=== PATIENT | male | born 1975 | race Asian ===

== ENCOUNTER 2021-01-30 17:57 | Inpatient (IN) | payer MEDICAID ==
[~2021-01-30] VITALS: Ht 170.2 cm; Wt 127.0 kg
--- NOTE | 2021-01-30 18:00 | NUR ---
Dr Walsh at bedside. Pt EDUINA from home, c/o R arm twitching. Hx: HTN, DM 2, Kidney Stones. Pt on multiple medications. Finger stick BS: HI >600. AO x 4, verbally responsive. Wilson snot appear to be in acute distress. Sinus Tachycardia on media monitor.
[2021-01-30] MEDS ORDERED: IV NORMAL SALINE 1000 ML BAG IV ONE (18:30)
[2021-01-30] MEDS ORDERED: IV NS 1000 ML 1,000 ML IV ONE (18:30)
[2021-01-30 18:32] LABS: BASOPHILS % (AUTO) 0.4 % (0.0-2.0); EOSINOPHILS # (AUTO) 0.1 K/uL (0.0-0.7); HEMATOCRIT 46.6 % (36.7-47.1); HEMOGLOBIN 15.6 g/dL (12.5-16.3); LYMPHOCYTES # (AUTO) 1.6 K/uL (20.0-40.0); LYMPHOCYTES % (AUTO) 21.9 % (20.5-51.5); MEAN CORPUSCULAR HEMOGLOBIN 29.9 uug (23.8-33.4); MEAN CORPUSCULAR HGB CONC 33 g/dL (32.5-36.3); MEAN CORPUSCULAR VOLUME 89.6 fL (73.0-96.2); MONOCYTES # (AUTO) 0.4 K/uL (2.0-10.0); MONOCYTES % (AUTO) 5.9 % (0.0-11.0); NEUTROPHILS # (AUTO) 5.3 K/uL (1.8-8.9); NEUTROPHILS % (AUTO) 70.8 % (38.5-71.5); PLATELET COUNT (AUTO) 303 K/uL (152-348); WHITE BLOOD COUNT (AUTO) 7.4 K/uL (3.6-10.2)
[2021-01-30] MEDS ORDERED: ZINC100T2 PO (18:44)
[2021-01-30] MEDS ORDERED: METF-440 PO (18:44)
[2021-01-30] MEDS ORDERED: NIFE30TA91 PO (18:44)
[2021-01-30] MEDS ORDERED: NIFE-34 PO (18:44)
[2021-01-30] MEDS ORDERED: ASPI81TA31 PO (18:44)
[2021-01-30] MEDS ORDERED: DAPA5TAB PO (18:44)
[2021-01-30] MEDS ORDERED: METO-356 PO (18:44)
[2021-01-30] MEDS ORDERED: BIOT50002 SL (18:44)
[2021-01-30] MEDS ORDERED: LOSA1TAB42 PO (18:44)
[2021-01-30] MEDS ORDERED: OMEP40CA13 PO (18:44)
[2021-01-30] MEDS ORDERED: ATOR20TA PO (18:44)
[2021-01-30 18:45] LABS: ALANINE AMINOTRANSFERASE 95 U/L (16-63); ALKALINE PHOSPHATASE 217 U/L (50-136); ASPARTATE AMINOTRANSFERASE 53 U/L (15-37); BILIRUBIN,TOTAL 0.5 mg/dL (0.2-1.0); CARBON DIOXIDE 24 mmol/L (21-32); CHLORIDE 88 mmol/L (98-107); CREATININE 1.9 mg/dL (0.6-1.3); POTASSIUM 3.1 mmol/L (3.5-5.1); TOTAL PROTEIN, SERUM 8.3 g/dL (6.4-8.2); UREA NITROGEN, BLOOD 11 mg/dL (7-18)
--- NOTE | 2021-01-30 18:58 | NUR ---
Pt remains AO x 4, fluids running. No changes in LOC noted, still with twitching on R arm. No signs of stroke. NIHSS done, Zero at this time. VS stable, as recorded.
[2021-01-30 18:59] LABS: GLUCOSE 695 mg/dL (74-106)
[2021-01-30] MEDS ORDERED: SWABABLE VALVE TRANSFER SET EA MC ONE (19:09)
[2021-01-30] MEDS ORDERED: IOHEXOL 350 100 ML INFUS..BTL ONE (19:09)
[2021-01-30] MEDS ORDERED: IV NORMAL SALINE 250 ML IV ONE (19:09)
[2021-01-30 19:27] LABS: *BILIRUBIN,URIN NEGATIVE (NEGATIVE); *CLARITY,URINE CLEAR (CLEAR); *COLOR,URINE LIGHT YELLOW (YELLOW); *KETONES,URINE TRACE (NEGATIVE); *UROBILINOGEN,URINE 0.2 E.U./dl (NORMAL); LEUKOCYTE ESTERASE ,URINE NEGATIVE (NEGATIVE); NITRITE, URINE NEGATIVE (NEGATIVE); PH,URINE 6.5 (5.0-8.0); UGLUCOSE 2+ (NEGATIVE)
[2021-01-30 19:28] LABS: *BLOOD, URINE TRACE INTACT (NEGATIVE)
[2021-01-30] MEDS ORDERED: MISCELLANEOUS MED IV STA (19:28)
[2021-01-30 19:29] LABS: WBC,URINE 0-3 /HPF (0-3)
[2021-01-30] MEDS ORDERED: IV NS + KCL 40 MEQ 1000 ML BAG 1,000 ML IV PRN (19:30)
[2021-01-30] MEDS ORDERED: MISCELLANEOUS MED IV ONE (19:30)
[2021-01-30] MEDS ORDERED: INSULIN REGULAR, HUMAN 100 UNITS in IV NORMAL SALINE 100 ML IV ONE (19:45)
--- NOTE | 2021-01-30 20:05 | NUR ---
Hold insulin drip at this time per Dr. Tinajero.
--- NOTE | 2021-01-30 20:14 | NUR ---
Paged [employer] for panel call.
--- NOTE | 2021-01-30 20:20 | NUR ---
Dr Tinajero spoke with Evert Taylor NP for CCU admission.
[2021-01-30 20:37] LABS: MAGNESIUM 1.9 mg/dL (1.8-2.4); PHOSPHOROUS 3.2 mg/dL (2.5-4.9)
[2021-01-30] MEDS ORDERED: POTASSIUM CHLORIDE 20 MEQ TAB.PRT.SR ONE (20:42)
[2021-01-30] MEDS ORDERED: POTASSIUM CHLORIDE 20 MEQ TAB.PRT.SR PO ONE (20:45)
--- NOTE | 2021-01-30 20:45 | NUR ---
PATIENT REFUSES ARTERIAL BLOOD GAS. PATIENT SAYS THAT HE FEELS OKAY AND HIS SATURATION IS GOOD AND THAT HE DOES NOT WANT AN ARTERIAL BLOOD GAS TO BE DONE. SPOKE TO ER MD AND CCU NURSES (BRADLEY AND RITA). CCU RN'S SAID THEY WILL ENDORSE IT TO THE ORDERING PHYSICIAN.
--- NOTE | 2021-01-30 21:47 | NUR ---
Pt. admitted to CCU Bed 4, under care of Evert Taylor NP. Diagonsis: Hyperglycemia Belongs List completed. MRSA swab done. Received insulin drip & IV fluids from pharmacy, will send with patient upstairs to the unit. Patient's vital signs are stable.
--- NOTE | 2021-01-30 22:00 | NUR ---
RECEIVED PATIENT FROM ER PATIENT AAOX4,MAEX4 ABLE TO WALK FORM GURNEY TO BED . ADMISSION HISTORY DONE AND DATA COLLECTED FROM PATIENT .
[2021-01-30 22:23] VITALS: BP 157/107
[2021-01-30 22:29] VITALS: BP 148/101
[2021-01-30 22:30] VITALS: BP 151/98
--- NOTE | 2021-01-30 22:45 | NUR ---
given jello and sandwich to eat ,patient able to feed self independent .
[2021-01-30 22:53] LABS: CREATININE 1.3 mg/dL (0.6-1.3); POTASSIUM 3.4 mmol/L (3.5-5.1)
[2021-01-30] MEDS ORDERED: ACETAMINOPHEN 325 MG TABLET PO PRN (23:00)
[2021-01-30] MEDS ORDERED: TEMAZEPAM 15 MG CAPSULE PO PRN (23:00)
[2021-01-30] MEDS ORDERED: HYDROCODONE/APAP 5-325MG TABLET PO PRN (23:00)
[2021-01-30] MEDS ORDERED: MAGNESIUM HYDROXIDE 30 ML LIQUID UDC PO PRN (23:00)
[2021-01-30] MEDS ORDERED: ONDANSETRON 4 MG/2 ML VIAL IV PRN (23:00)
[2021-01-30] MEDS ORDERED: Z GUARD REMEDY PASTE 57 GM TUBE TOP PRN (23:00)
[2021-01-30] MEDS ORDERED: INSULIN REGULAR, HUMAN 300 UNIT/3 ML VIAL SQ ONE (23:30)
[2021-01-30] MEDS ORDERED: IV 1/2NS 1000 ML 1,000 ML IV PRN (23:30)
[2021-01-30] MEDS ORDERED: DEXTROSE 50% 50 ML DISP.SYRIN IV PRN (23:30)
--- NOTE | 2021-01-30 23:33 | NUR ---
SPOKED TO FOOD PRESERVATION SCIENTIST AUGUSTINE GUERRA AND DICTATED BMP AND FINGERSTICKS RESULTS HE SAID PATIENT DONT NEED INSULIN AND WILL ORDER CAR STATUS .
--- NOTE | 2021-01-30 23:45 | NUR ---
ESCORTED PATIENT TO THE BATHROOM VOIDED AND HAD BM . PATIENT ABLE TO DO SELF CARE . PROVIDED TOOTHBRUSH AND SOAP AND WACH CLOTH .BACK TO BED .
[2021-01-31] VITALS (11 sets, daily range): BP systolic 123–159; BP diastolic 84–113
[2021-01-31] MEDS ORDERED: POTASSIUM CHLORIDE 50 ML IV SCH
[2021-01-31] MEDS: POTASSIUM CHLORIDE 20 MEQ in IV 1/2NS 1000 ML 1,000 ML IV PRN ×2 (00:35→11:00)
--- NOTE | 2021-01-31 00:51 | NUR ---
FINGERSTICKS DONE 375 (H) WITH ORDERS TO GIVE REGULAR INSULIN 12 UNITS SUBCUTANEOUSLY X1.
[2021-01-31] MEDS ORDERED: INSULIN REGULAR, HUMAN 300 UNIT/3 ML VIAL SQ ONE (01:00)
[2021-01-31 01:33] LABS: CREATININE 1.2 mg/dL (0.6-1.3); POTASSIUM 3.3 mmol/L (3.5-5.1)
--- NOTE | 2021-01-31 04:53 | NUR ---
ambulated to the bathroom voided . back to bed .
[2021-01-31 05:30] LABS: BASOPHILS % (AUTO) 0.5 % (0.0-2.0); EOSINOPHILS # (AUTO) 0.2 K/uL (0.0-0.7); EOSINOPHILS % (AUTO) 2.2 % (0.0-7.0); HEMATOCRIT 43.5 % (36.7-47.1); HEMOGLOBIN 14.7 g/dL (12.5-16.3); LYMPHOCYTES # (AUTO) 2.9 K/uL (20.0-40.0); LYMPHOCYTES % (AUTO) 39.1 % (20.5-51.5); MEAN CORPUSCULAR HEMOGLOBIN 29.5 uug (23.8-33.4); MEAN CORPUSCULAR HGB CONC 34 g/dL (32.5-36.3); MEAN CORPUSCULAR VOLUME 87.6 fL (73.0-96.2); MONOCYTES # (AUTO) 0.5 K/uL (2.0-10.0); MONOCYTES % (AUTO) 7.2 % (0.0-11.0); NEUTROPHILS # (AUTO) 3.8 K/uL (1.8-8.9); PLATELET COUNT (AUTO) 275 K/uL (152-348); RED BLOOD CELL COUNT(AUTO) 4.97 MIL/uL (4.06-5.63); WHITE BLOOD COUNT (AUTO) 7.4 K/uL (3.6-10.2)
[2021-01-31 05:48] LABS: BILIRUBIN,DIRECT 0.2 mg/dL (0.0-0.2); BILIRUBIN,TOTAL 0.5 mg/dL (0.2-1.0); CREATININE 0.9 mg/dL (0.6-1.3); MAGNESIUM 1.9 mg/dL (1.8-2.4); PHOSPHOROUS 1.7 mg/dL (2.5-4.9); POTASSIUM 2.9 mmol/L (3.5-5.1); TOTAL PROTEIN, SERUM 7.4 g/dL (6.4-8.2)
[2021-01-31] MEDS ORDERED: POTASSIUM PHOSPHATE MM 30 MMOL in IV NORMAL SALINE 250 ML IV ONE (06:30)
--- NOTE | 2021-01-31 06:33 | NUR ---
CALLED [facility] FOR ABNORMAL LABS SPOKED WITH PARAG OVERTON WITH REGARDS TO K+2.9L AND PHOS 1.7L with orders for 30 mmol of KPHOS IVF.
[2021-01-31] MEDS: BLOOD SUGAR DIAGNOSTIC 1 EACH STRIP VI SCH ×4 (07:44→21:40)
[2021-01-31] MEDS: INSULIN REGULAR, HUMAN 300 UNIT/3 ML VIAL SQ PRN ×4 (07:50→21:29)
[2021-01-31] MEDS: POTASSIUM PHOSPHATE MM 7.5 MMOL in IV NORMAL SALINE 97.5 ML IV SCH ×4 (08:04→17:00)
[2021-01-31] MEDS ORDERED: HEPARIN SODIUM,PORCINE 5,000 UNITS/ML VIAL SQ SCH (09:00)
[2021-01-31] MEDS ORDERED: POTASSIUM CHLORIDE 20 MEQ TAB.PRT.SR PO ONE (09:30)
--- NOTE | 2021-01-31 10:14 | NUR ---
Dr. Justin to reconcile home medications. Blood pressure elevated and patient asking for blood pressure medication.
[2021-01-31] MEDS: NIFEdipine XL 60 MG TABSR PO SCH (11:17)
[2021-01-31] MEDS: METOPROLOL SUCCINATE XL 25 MG TAB.SR.24H PO SCH ×2 (11:17→21:24)
[2021-01-31] MEDS: glipiZIDE 10 MG TABLET PO SCH ×2 (11:18→16:34)
--- NOTE | 2021-01-31 11:45 | NUR ---
Report given to aureliano LLAMAS. Informed that medications were just reconciled by MD and blood pressure meds were just given. Blood sugar checked and covered with insulin sliding scale. patient will be going to room 312. All Belongings noted patient reviewed and taken by patient to new room via wheel chair. patient on monitor on transfer.
--- NOTE | 2021-01-31 12:45 | NUR ---
RECEIVED PATIENT FROM CCU#4 AWAKE ALERT AND ORIENTED X3, ABLE TO VERBALIZE NEEDS WELL. NO SS OF PAIN OR DISTRESS. BP 161/113. PATIENT JUST GOT PROCARDIA AND METOPROLOL PRIOR TO TRANSFER TO TELEMETRY. DENIES CHEST PAIN/PRESSURE. PATIENT REMAINS ON SR.
--- NOTE | 2021-01-31 13:30 | NUR ---
SEEN BY DR LIVE FOR FOLLOW-UP SEE NOTES.
[2021-01-31] MEDS ORDERED: VALS1TAB76 PO (15:42)
[2021-01-31] MEDS ORDERED: ERGO500040 PO (15:47)
[2021-01-31] MEDS ORDERED: POTA15TA6 PO (15:49)
--- NOTE | 2021-01-31 16:00 | NUR ---
Patient offered DVT pump for prophylaxis, patient refused.
--- NOTE | 2021-01-31 17:34 | NUR ---
Per Dr. Justin, give 3 bags only of K Phos instead of 4 bags.
--- NOTE | 2021-01-31 20:00 | NUR ---
Pt resting on chair;; plan of care explained; some diabetic education given.
[2021-01-31] MEDS ORDERED: ATORVASTATIN 20 MG TABLET PO SCH (21:00)
[2021-02-01 00:08] VITALS: BP 133/57
--- NOTE | 2021-02-01 01:18 | NUR ---
report given to FARHAD Chamorro who will assume care.
[2021-02-01 04:16] VITALS: BP 141/97
[2021-02-01] MEDS: BLOOD SUGAR DIAGNOSTIC 1 EACH STRIP VI SCH ×2 (06:23→11:39)
[2021-02-01 06:31] LABS: BASOPHILS % (AUTO) 0.7 % (0.0-2.0); EOSINOPHILS # (AUTO) 0.2 K/uL (0.0-0.7); HEMATOCRIT 43.6 % (36.7-47.1); HEMOGLOBIN 14.8 g/dL (12.5-16.3); LYMPHOCYTES # (AUTO) 2.4 K/uL (20.0-40.0); LYMPHOCYTES % (AUTO) 41.9 % (20.5-51.5); MEAN CORPUSCULAR HEMOGLOBIN 29.9 uug (23.8-33.4); MEAN CORPUSCULAR HGB CONC 34 g/dL (32.5-36.3); MONOCYTES # (AUTO) 0.4 K/uL (2.0-10.0); MONOCYTES % (AUTO) 7.2 % (0.0-11.0); NEUTROPHILS # (AUTO) 2.6 K/uL (1.8-8.9); NEUTROPHILS % (AUTO) 46.2 % (38.5-71.5); PLATELET COUNT (AUTO) 262 K/uL (152-348); RED BLOOD CELL COUNT(AUTO) 4.95 MIL/uL (4.06-5.63); WHITE BLOOD COUNT (AUTO) 5.7 K/uL (3.6-10.2)
--- NOTE | 2021-02-01 06:36 | NUR ---
PATIENT ALERT ORIENTED, NO SOB NO CHEST PAIN, ON RA. PATIENT TELE MONITOR SINUS RHYTHM, NO COMPLAIN OF PAIN AT THIS TIME. PATIENT HAS NO S/S OF HYPO/HYPERGYLCEMIA NOTED A THIS TIME. PATIENT AMBULATE TO TOILET, CALL LIGHT WITHIN REACH.
[2021-02-01 06:40] LABS: CREATININE 0.8 mg/dL (0.6-1.3); MAGNESIUM 2.2 mg/dL (1.8-2.4); PHOSPHOROUS 2.8 mg/dL (2.5-4.9)
[2021-02-01 06:45] LABS: POTASSIUM 2.8 mmol/L (3.5-5.1)
[2021-02-01] MEDS ORDERED: PANTOPRAZOLE SODIUM 40 MG TABLET.DR PO SCH (07:00)
[2021-02-01] MEDS: glipiZIDE 10 MG TABLET PO SCH (08:11)
[2021-02-01] MEDS: INSULIN REGULAR, HUMAN 300 UNIT/3 ML VIAL SQ PRN ×2 (08:14→11:46)
[2021-02-01] MEDS: NIFEdipine XL 60 MG TABSR PO SCH (08:23)
[2021-02-01] MEDS: METOPROLOL SUCCINATE XL 25 MG TAB.SR.24H PO SCH (08:23)
[2021-02-01] MEDS ORDERED: ASPIRIN 81 MG TAB.CHEW PO SCH (09:00)
[2021-02-01] MEDS ORDERED: POTASSIUM CHLORIDE 20 MEQ TAB.PRT.SR PO ONE ×3 (09:30→13:00)
[2021-02-01] MEDS ORDERED: METFORMIN HCL 500 MG TABLET PO SCH (10:30)
[2021-02-01 12:00] VITALS: BP 152/97
[2021-02-01] MEDS ORDERED: VALS160T2 PO (12:07)
[2021-02-01] MEDS ORDERED: CITA10TA17 PO (12:07)
[2021-02-01] MEDS ORDERED: METF-442 PO (12:07)
--- NOTE | 2021-02-01 16:45 | NUR ---
Discharged patient with VS stable. No signs of acute distress. IV access removed. ID band removed. Discharge documentations signed. Belongings accounted for and belongings list signed. Discharge instructions given to patient and patient verbalized understanding. Patient picked up by brother via private car.
== END 2021-02-01 16:30 | disposition home or self-care (01) | DRG 420 ==
LOC: ER 17:59 → CCU 21:51 → TELE3 01-31 13:00 → MEDSURG3 02-01 10:54
PROVIDERS: ADMIT Nurse Practitioner Family; ATTEND Internal Medicine
DX: E11.10 Type 2 diabetes mellitus with ketoacidosis without coma (principal); E66.01 Morbid (severe) obesity due to excess calories; E86.0 Dehydration; E78.5 Hyperlipidemia, unspecified; E87.6 Hypokalemia; F32.9 Major depressive disorder, single episode, unspecified; I10 Essential (primary) hypertension; Z87.442 Personal history of urinary calculi; Z20.822 Contact with and (suspected) exposure to COVID-19; T50.2X5A Adverse effect of carbonic-anhydrase inhibitors, benzothiadiazides and other diuretics, initial encounter; Y92.89 Other specified places as the place of occurrence of the external cause; R20.2 Paresthesia of skin; Z79.84 Long term (current) use of oral hypoglycemic drugs; E78.1 Pure hyperglyceridemia; Z79.82 Long term (current) use of aspirin; Z68.41 Body mass index [BMI] 40.0-44.9, adult
CPT/HCPCS: 36415; 70030-TC; 70496; 71045; 83735; 84100; 85025; 93005; A4663; G0378; J1644; J1815; J3480; J3490; J7030; J7050; Q9967